=== PATIENT | male | born 1995 | race Caucasian/White ===

== ENCOUNTER 2017-07-12 13:52 | Emergency (ER) | payer OTHER ==
[~2017-07-12] VITALS: Ht 170.2 cm; Wt 89.1 kg
--- NOTE | 2017-07-12 14:10 | NUR ---
Note undone in EDM - 07/12/17 at 1621 by FARHEEN c/o mechanical fall 4 days ago --attempted to stop fall and injury right hand knuckle area swelling noted ---denies wrist injury . DENIES N/V/D; SKIN IS PINK/WARM/DRY; AAOX4 WITH EVEN AND STEADY GAIT; LUNGS CLEAR BL; HR EVEN AND REGULAR; PT DENIES ANY FEVER, CP, SOB, OR COUGH AT THIS TIME; PATIENT STATES PAIN OF 7/10 AT THIS TIME; VSS; ER MD MADE AWARE OF PT STATUS.
[2017-07-12 14:27] VITALS: BP 133/65
--- NOTE | 2017-07-12 15:37 | NUR ---
PT AMBULATED TO [facility]
--- NOTE | 2017-07-12 16:10 | NUR ---
c/o mechanical fall 4 days ago --attempted to stop fall and injury right hand knuckle area swelling noted ---denies wrist injury . DENIES N/V/D; SKIN IS PINK/WARM/DRY; AAOX4 WITH EVEN AND STEADY GAIT; LUNGS CLEAR BL; HR EVEN AND REGULAR; PT DENIES ANY FEVER, CP, SOB, OR COUGH AT THIS TIME; PATIENT STATES PAIN OF 7/10 AT THIS TIME; VSS; ER MD MADE AWARE OF PT STATUS.
[2017-07-12] MEDS ORDERED: KETOROLAC 60 MG/2 ML VIAL IM ONE (16:25)
[2017-07-12] MEDS ORDERED: DEXAMETHASONE 10 MG/ML VIAL IM ONE (16:25)
[2017-07-12 17:15] VITALS: BP 130/94
--- NOTE | 2017-07-12 17:15 | NUR ---
Patient discharged with v/s stable. Written and verbal after care instructions given and explained. Patient alert, oriented and verbalized understanding of instructions. Ambulatory with steady gait. All questions addressed prior to discharge. ID band removed. Patient advised to follow up with PMD. Rx of KETOROLAC,TRAMADOL given. Patient educated on indication of medication including possible reaction and side effects. Opportunity to ask questions provided and answered.
== END 2017-07-12 17:15 | disposition home or self-care (01) ==
LOC: MED 13:52
DX: S60.221A Contusion of right hand, initial encounter (principal); X58.XXXA Exposure to other specified factors, initial encounter; Y93.89 Activity, other specified; Y92.89 Other specified places as the place of occurrence of the external cause; Y99.8 Other external cause status
CPT/HCPCS: 73130; 96372; 99284; J1100; J1885